=== PATIENT | female | born 1980 | race Caucasian/White ===

== ENCOUNTER 2018-02-25 23:53 | Emergency (ER) | payer BC ==
[2018-02-25] MEDS ORDERED: Lidocaine 1% 20 ML MDV ONE (23:55)
[2018-02-25] MEDS ORDERED: Doxycycline 100 MG Cap ONE (23:55)
[2018-02-26] MEDS: Diphtheria/Tetanus Toxoids,Adult (Td) 0.5 ML SDV IM ONE (00:59)
--- NOTE | 2018-02-27 02:44 | EDM.PDOC ---
ED HPI GENERAL MEDICAL PROBLEM - General Chief Complaint: Bite:Animal, Insect Stated Complaint: DOG BITE Time Seen by Provider: 02/25/18 23:59 Source of Information: Reports: Patient History Limitations: Reports: No Limitations - History of Present Illness INITIAL COMMENTS - FREE TEXT/NARRATIVE: This is a 38yo F with a open wound from a dog bite. The bite was a quick bite and through the pants. Patient did not notice any concerns initially but did have some tenderness and as time progressed she felt that the symptoms worsened and discovered a large laceration of the area and puncture wounds. Onset: Sudden Location: Reports: Lower Extremity, Right - Related Data Allergies Allergy/AdvReac Type Severity Reaction Status Date / Time Penicillins Allergy Rash Verified 02/26/18 00:14 Sulfa (Sulfonamide Allergy Rash Verified 02/26/18 00:14 Antibiotics) ED ROS GENERAL - Review of Systems Review Of Systems: ROS reveals no pertinent complaints other than HPI. ED EXAM, ANIMAL BITE - Physical Exam Exam: See Below Exam Limited By: No Limitations General Appearance: Alert, WD/WN, Mild Distress Respiratory/Chest: No Respiratory Distress Cardiovascular: Normal Peripheral Pulses Peripheral Pulses: 2+: Dorsalis Pedis (L), Dorsalis Pedis (R) Skin Exam: Other (wound 9x1cm and 1cm adjacent puncture ) ED ANIMAL BITE PROCEDURES - Laceration/Wound Repair Right Proximal Thigh Lac/Wound Length In cm: 9 Appearance: Subcutaneous Distal NVT: Neuro & Vascular Intact, No Tendon Injury Local Anesthesia - Lidocaine (Xylocaine): 1% Plain Local Anesthetic Volume: Other (15) Skin Prep: Chlorhexidine (Hibiciens), Sterile Drape Exploration/Debridement/Repair: Wound Explored Closed With: Sutures Suture Size: 4-0 # of Sutures: 19 Suture Type: Nylon, Interrupted, Simple Drain Placement: No Sterile Dressing Applied: Nurse Tetanus Status Addressed: Yes Complications: No Course - Orders/Labs/Meds Meds: Medications Discontinued Medications Generic Name Dose Route Start Last Admin Trade Name Maranda PRN Reason Stop Dose Admin Doxycycline Hyclate 2,000 mg 02/25/18 23:55 Vibramycin .ROUTE 02/25/18 23:56 .STK-MED ONE Lidocaine HCl 20 ml 02/25/18 23:55 Xylocaine 1% .ROUTE 02/25/18 23:56 .STK-MED ONE Tetanus/Diphtheria Toxoids 0.5 ml 02/26/18 00:56 02/26/18 00:59 Tenivac IM 02/26/18 00:57 0.5 ml .ONCE ONE Administration Departure - Departure Time of Disposition: 01:40 Disposition: Home, Self-Care 01 Condition: Good Clinical Impression: Laceration Dog bite of right thigh Qualifiers: Encounter type: initial encounter Qualified Code(s): S71.151A - Open bite, right thigh, initial encounter; W54.0XXA - Bitten by dog, initial encounter - Discharge Information Instructions: Animal Bite, [id number], Diphtheria Toxoid; Tetanus Toxoid Adsorbed, DT, Td Forms: ED Department Discharge Additional Instructions: Take Doxicylline 100mg 2 times a day for 7 days Counseled on antibiotics and side effects. Discussed wound care and monitoring and if any concerns for f/u in ER or clinic. Discussed suture removal timeline.
== END 2018-02-26 01:06 | disposition home or self-care (01) ==
LOC: LB.ED 23:53
DX: S71.151A Open bite, right thigh, initial encounter (principal); Z88.0 Allergy status to penicillin; Z88.2 Allergy status to sulfonamides; Z79.899 Other long term (current) drug therapy; Z23 Encounter for immunization; W54.0XXA Bitten by dog, initial encounter
CPT/HCPCS: 12004; 90471; 90714; 99283; A9270